=== PATIENT | male | born 1980 | race Caucasian/White ===

== ENCOUNTER 2020-06-15 16:33 | Emergency (ER) | payer BC ==
[~2020-06-15] VITALS: Ht 190.5 cm; Wt 100.0 kg
[2020-06-15 16:41] VITALS: Ht 190.5 cm; Wt 100.0 kg
[2020-06-15 17:18] LABS: BASOPHILS 0.6 % (0-2); EOSINOPHILS 2.2 % (0-7); HEMATOCRIT 43.6 % (42.0-54.0); HEMOGLOBIN 14.8 g/dL (13.5-17.5); IMMATURE GRANULOCYTES 0.1 % (0-5); LYMPHOCYTE ABS# 1.73 10x3/uL (1.32-3.57); LYMPHOCYTES 19.1 % (15-50); MCH 29.1 pg (26.0-34.0); MCHC 33.9 g/dL (31.0-37.0); MCV 85.8 fL (80.0-100.0); MEAN PLATELET VOLUME 9.9 fL (7.4-10.4); MONOCYTES 7.9 % (2-11); NEUTROPHIL ABS# 6.37 10x3/uL (1.78-5.38); NEUTROPHILS 70.1 % (40-80); PLATELET COUNT 229 10x3/uL (130-400); RBC 5.08 10x6/uL (4.20-6.10); RDW 13.7 % (11.5-14.5); WBC 9.1 10x3/uL (4.8-10.8)
[2020-06-15 17:37] LABS: CALC OSMOLALITY 275 mosm/kg (275-300); CALCIUM 8.6 mg/dL (8.5-10.1); CARBON DIOXIDE 28.4 mmol/L (21.0-32.0); CHLORIDE - SERUM 104 mmol/L (98-107); CREATININE - SERUM 0.9 mg/dL (0.6-1.3); GLUCOSE 99 mg/dL (74-106); SODIUM 138 mmol/L (136-145); UREA NITROGEN 13 mg/dL (7-18); eGFR NON AFRICAN AMERICAN > 90 mL/min (90-120)
[2020-06-15 17:42] LABS: ALBUMIN 3.5 g/dL (3.4-5.0); ALKALINE PHOSPHATASE 68 U/L (30-120); ALT (SGPT) 33 U/L (10-68); BILIRUBIN - TOTAL 0.17 mg/dL (0.2-1.3); PROTEIN - SERUM 6.8 g/dL (6.4-8.2)
[2020-06-15 18:27] LABS: BILIRUBIN NEGATIVE (NEGATIVE); KETONE NEGATIVE (NEGATIVE); NITRITE NEGATIVE (NEGATIVE); UROBILINOGEN NORMAL mg/dL (< 2)
[2020-06-15 18:28] LABS: WHITE CELLS - URINE 0-5 HPF (0-1)
[2020-06-15 18:31] LABS: UDS - AMPHET POSITIVE QUAL (NEGATIVE); UDS - BARB NEGATIVE QUAL (NEGATIVE); UDS - BENZO NEGATIVE QUAL (NEGATIVE); UDS - COCAINE NEGATIVE QUAL (NEGATIVE); UDS - OPIATE NEGATIVE QUAL (NEGATIVE); UDS - PCP NEGATIVE QUAL (NEGATIVE); UDS - THC NEGATIVE QUAL (NEGATIVE)
[2020-06-15] MEDS ORDERED: MACROBID100 MG PO (20:03)
[2020-06-15 20:15] VITALS: BP 128/81
== END 2020-06-15 20:14 | disposition home or self-care (01) ==
LOC: D.ER 16:33
PROVIDERS: Family Medicine
DX: R55 Syncope and collapse (principal); R56.9 Unspecified convulsions; F15.10 Other stimulant abuse, uncomplicated; N39.0 Urinary tract infection, site not specified; J45.909 Unspecified asthma, uncomplicated; Z72.0 Tobacco use

== ENCOUNTER 2020-09-17 13:20 | Emergency (ER) | payer BC ==
[~2020-09-17] VITALS: Ht 190.5 cm; Wt 95.3 kg
[~2020-09-17 13:20] MED LIST: MACROBID100 MG PO
[2020-09-17 13:24] VITALS: Ht 190.5 cm; Wt 95.3 kg
[2020-09-17 13:50] LABS: BASOPHILS 0.4 % (0-2); EOSINOPHILS 0.3 % (0-7); HEMATOCRIT 45.2 % (42.0-54.0); HEMOGLOBIN 14.8 g/dL (13.5-17.5); MCH 28.6 pg (26.0-34.0); MCHC 32.8 g/dL (31.0-37.0); MCV 87.1 fL (80.0-100.0); MEAN PLATELET VOLUME 8.6 fL (7.4-10.4); MONOCYTES 6.8 % (2-11); NEUTROPHILS 83.5 % (40-80); PLATELET COUNT 227 10x3/uL (130-400); RBC 5.19 10x6/uL (4.20-6.10); RDW 13.9 % (11.5-14.5)
[2020-09-17 13:57] LABS: CALC OSMOLALITY 280 mosm/kg (275-300); CALCIUM 8.6 mg/dL (8.5-10.1); CARBON DIOXIDE 24.4 mmol/L (21.0-32.0); CHLORIDE - SERUM 103 mmol/L (98-107); CREATININE - SERUM 1.1 mg/dL (0.6-1.3); GLUCOSE 108 mg/dL (74-106); POTASSIUM - SERUM 3.9 mmol/L (3.5-5.1); SODIUM 140 mmol/L (136-145); UREA NITROGEN 15 mg/dL (7-18); eGFR NON AFRICAN AMERICAN 80 mL/min (90-120)
[2020-09-17 14:05] LABS: ALBUMIN 4.9 g/dL (3.4-5.0); ALKALINE PHOSPHATASE 66 U/L (30-120); ALT (SGPT) 17 U/L (10-68); AMYLASE - SERUM 41 U/L (25-115); BILIRUBIN - TOTAL 0.52 mg/dL (0.2-1.3); LIPASE 57 U/L (73-393); PROTEIN - SERUM 7.2 g/dL (6.4-8.2)
[2020-09-17 14:06] LABS: TROPONIN-I < 0.017 ng/mL (0.000-0.060)
[2020-09-17 14:30] LABS: BILIRUBIN NEGATIVE (NEGATIVE); KETONE 2+ mg/dL (< 1+); NITRITE NEGATIVE (NEGATIVE); SQUAMOUS EPITHELIAL 2 HPF (0-4); UROBILINOGEN NORMAL mg/dL (< 2); WHITE CELLS - URINE 14 HPF (0-1)
[2020-09-17 14:39] LABS: UDS - AMPHET POSITIVE QUAL (NEGATIVE); UDS - BARB NEGATIVE QUAL (NEGATIVE); UDS - BENZO NEGATIVE QUAL (NEGATIVE); UDS - COCAINE NEGATIVE QUAL (NEGATIVE); UDS - OPIATE NEGATIVE QUAL (NEGATIVE); UDS - PCP NEGATIVE QUAL (NEGATIVE); UDS - THC NEGATIVE QUAL (NEGATIVE)
[2020-09-17 14:40] LABS: BACTERIA FEW HPF (<MOD)
[2020-09-17 15:48] LABS: ERYTHROCYTE SEDIMENTATION RATE 6 mm/hr (0-15)
[2020-09-17] MEDS ORDERED: FLOMAX0.4 MG PO (15:48)
[2020-09-17] MEDS ORDERED: HYDROCODON-ACE1 EAC7 PO (15:48)
[2020-09-17] MEDS ORDERED: DICLOFENAC SODI50 MG PO (15:48)
[2020-09-17] MEDS ORDERED: ZOFRAN ODT4 MG/UDTAB PO (15:48)
== END 2020-09-17 16:56 | disposition home or self-care (01) ==
LOC: D.ER 13:20
PROVIDERS: Family Medicine
DX: R10.31 Right lower quadrant pain (principal); F15.10 Other stimulant abuse, uncomplicated; R31.9 Hematuria, unspecified; D72.829 Elevated white blood cell count, unspecified; N20.0 Calculus of kidney; J45.909 Unspecified asthma, uncomplicated; Z72.0 Tobacco use; R73.9 Hyperglycemia, unspecified